=== PATIENT | male | born 1970 | race African-American/Black ===

== ENCOUNTER 2025-02-10 11:35 | Emergency (ER) | payer BC, OTHER, SELFPAY ==
[2025-02-10] MEDS ORDERED: Acetaminophen 500 MG TAB ONE (12:18)
[2025-02-10 12:24] LABS: #Basophils 0.2 thou/uL (0.0-0.2); #Eosinophils 0.0 thou/uL (0.0-0.7); #Lymphocytes 1.3 thou/uL (1.20-3.40); #Monocytes 0.9 thou/uL (0.11-0.59); #Neutrophils 11.6 thou/uL (1.40-6.50); %Basophils 1.4 % (0.0-1.0); %Eosinophils 0.1 % (0.0-10.0); %Lymphocytes 9.3 % (21.0-51.0); %Monocytes 6.2 % (0.0-10.0); %Neutrophils 83.0 % (42.0-75.0); Hematocrit 40.4 % (42.0-52.0); Hemoglobin 14.0 g/dL (14.0-18.0); Mean Corpuscular Hemoglobin 28.2 pg (27.0-31.0); Mean Corpuscular Volume 81.3 fl (78.0-98.0); Platelet Count 436 10x3/uL (130-400); Red Blood Cell (RBC) Count 4.97 mill/uL (4.70-6.10); White Blood Cell (WBC) Count 14.0 10x3/uL (4.8-10.8)
[2025-02-10 12:36] LABS: Bicarbonate (HCO3v) 20.3 mmol/L (22.0-28.0); CO2 Tension (PvCO2) 20.4 mmHg (42.0-51.0); Calcium, Ionized 1.05 mmol/L (1.15-1.33); Chloride 99 mmol/L (98-107); Hemoglobin - Calc 14.5 g/dL (14.0-18.0); Potassium 4.7 mmol/L (3.5-5.1); Sodium 127 mmol/L (138-145); T. Carbon Dioxide 20.9 mmol/L (22.0-28.0); vO2 Saturation-calc 83.2 % (60.0-85.0)
[2025-02-10 14:09] LABS: Glucose, Urine (Dipstick) >=1000 mg/dL (Negative); Leukocyte Trace (Negative); Protein, Urine (Dipstick) 30 mg/dL (Neg-Trace); Specific Gravity, Urine Less/Equal 1.005 (1.005-1.030)
[2025-02-10 14:14] LABS: RBC/HPF 0-3 HPF (0-3)
[2025-02-10 14:15] LABS: Bacteria/HPF 4+ HPF (None Seen); CAUTI Indications for Culture Fever or rigors
[2025-02-10 14:16] LABS: Urine Culture Reflex Yes Yes
[2025-02-10 14:37] LABS: ALT (SGPT) 39 U/L (Less than 45); AST (SGOT) 46 U/L (11-34); Albumin 2.5 g/dL (3.1-4.5); Alkaline Phosphatase 93 U/L (40-110); Anion Gap 19 mmol/L (10-20); BUN (Urea Nitrogen) 14 mg/dL (8.4-25.7); Bilirubin, Total 0.4 mg/dL (0.3-1.2); Calc. Creatinine Clearance 0 mL/min (70-130); Calcium 9.4 mg/dL (7.8-10.44); Carbon Dioxide 19 mmol/L (22-29); Chloride 96 mmol/L (98-107); Globulin 5.0 g/dL (2.4-3.5); Glucose 316 mg/dL (70-105); Potassium 4.7 mmol/L (3.5-5.1); Sodium 129 mmol/L (136-145)
== END 2025-02-10 15:26 | disposition home or self-care (01) ==
LOC: NAV ERS 11:35
DX: N10 Acute pyelonephritis (principal); E86.0 Dehydration; E11.9 Type 2 diabetes mellitus without complications; Z79.84 Long term (current) use of oral hypoglycemic drugs
CPT/HCPCS: 36416; 71045; 80053; 81001; 82330; 82435; 82803; 83605; 84132; 84295; 85014; 85025; 87040; 87077; 87086; 87186; 87428; 93005; 96360; J7030